=== PATIENT | female | born 1995 | race Two or more races ===

== ENCOUNTER 2024-05-22 08:45 | Outpatient (CLI) | payer OTHER | END 2024-05-22 08:54 | disposition home or self-care (01) | LOC: PRENATAL 08:45 | PROVIDERS: ATTEND Obstetrics & Gynecology Maternal & Fetal Medicine | DX: Z76.1 Encounter for health supervision and care of foundling (principal) ==

== ENCOUNTER 2024-05-28 10:19 | Outpatient (CLI) | payer OTHER | END 2024-05-28 10:20 | disposition home or self-care (01) | LOC: PRENATAL 10:19 | PROVIDERS: ATTEND Obstetrics & Gynecology Maternal & Fetal Medicine | DX: O36.80X0 Pregnancy with inconclusive fetal viability, not applicable or unspecified (principal); Z36.82 Encounter for antenatal screening for nuchal translucency; Z36.9 Encounter for antenatal screening, unspecified; Z3A.13 13 weeks gestation of pregnancy ==

== ENCOUNTER 2024-07-20 08:03 | Outpatient (CLI) | payer OTHER | END 2024-07-20 08:04 | disposition home or self-care (01) | LOC: PRENATAL 08:03 | PROVIDERS: ATTEND Obstetrics & Gynecology Maternal & Fetal Medicine | DX: O44.00 Complete placenta previa NOS or without hemorrhage, unspecified trimester (principal); O99.280 Endocrine, nutritional and metabolic diseases complicating pregnancy, unspecified trimester; O34.10 Maternal care for benign tumor of corpus uteri, unspecified trimester; Z3A.21 21 weeks gestation of pregnancy ==

== ENCOUNTER → 2024-10-15 | Outpatient (CLI) | payer OTHER | END | disposition home or self-care (01) | LOC: PRENATAL 09:34 | PROVIDERS: ATTEND Obstetrics & Gynecology Maternal & Fetal Medicine | DX: O26.849 Uterine size-date discrepancy, unspecified trimester (principal); O36.8199 Decreased fetal movements, unspecified trimester, other fetus; O99.280 Endocrine, nutritional and metabolic diseases complicating pregnancy, unspecified trimester; O34.10 Maternal care for benign tumor of corpus uteri, unspecified trimester; Z3A.33 33 weeks gestation of pregnancy ==

== ENCOUNTER 2024-11-11 10:31 | Outpatient (CLI) | payer OTHER | END 2024-11-11 11:27 | disposition home or self-care (01) | LOC: NST 10:31 | PROVIDERS: ATTEND General Practice | DX: Z3A.37 37 weeks gestation of pregnancy (principal) ==

== ENCOUNTER 2024-11-17 11:11 | Inpatient (IN) | payer OTHER ==
[~2024-11-17] VITALS: Ht 149.9 cm; Wt 86.2 kg
[2024-11-17 12:19] LABS: HEMATOCRIT 38.5 % (36.0-45.00); HEMOGLOBIN 12.7 g/dL (12.0-15.00); MEAN CELL VOLUME 88.7 fL (80.00-100.00); MEAN CORPUSCULAR HEMOGLOBIN 29.2 pg (27.00-32.0); MEAN CORPUSCULAR HGB CONC 32.9 g/dl (32.0-36.0); PLATELET COUNT 200 K/uL (150-450); RED BLOOD COUNT 4.34 M/uL (4.00-6.00)
[2024-11-17 12:43] LABS: INR 0.96; PROTHROMBIN TIME 10.5 SECONDS (9.0-11.5)
[2024-11-17 13:13] LABS: ALBUMIN 2.7 gm/dL (3.4-5.0); BILIRUBIN TOTAL 0.26 mg/dL (0.3-1.2); CALCIUM 9.6 mg/dL (8.5-10.1); CREATININE SERUM 0.45 mg/dL (0.55-1.02); GFR 164.73; GLOBULINA 4.6 G/DL (2.4-3.5); POTASSIUM 4.34 mEq/L (3.5-5.1); TOTAL PROTEIN 7.3 gm/dL (6.4-8.2)
[2024-11-24 10:58] VITALS: BP 110/74
[2024-11-24] MEDS ORDERED: SYNTHROID112 MCG PO (11:27)
[2024-11-24] MEDS ORDERED: PRENATAL TABLE1 EAC1 PO (11:28)
[2024-11-24] MEDS ORDERED: MISOPROSTOL 50 MCG TABLET ONE (12:42)
[2024-11-24] MEDS ORDERED: MISOPROSTOL 50 MCG TABLET VAG NR (12:45)
[2024-11-24 15:11] VITALS: BP 102/63
[2024-11-24 19:23] VITALS: BP 102/68
[2024-11-24 23:09] VITALS: BP 96/64
[2024-11-25] VITALS (8 sets, daily range): BP systolic 87–132; BP diastolic 47–69
[2024-11-25] MEDS ORDERED: OXYTOCIN 20 UNITS/500ML RL PIGGYBAG IV ONE (06:56)
[2024-11-25] MEDS ORDERED: OXYTOCIN 500 ML IV SCH (07:00)
[2024-11-25] MEDS ORDERED: FAMOTIDINE/PF 20 MG/2 ML VIAL IV SCH (11:13)
[2024-11-25] MEDS ORDERED: ONDANSETRON HCL 2 MG/ML VIAL IV PRN (12:45)
[2024-11-25] MEDS ORDERED: MORPHINE SULFATE 4 MG/ML VIAL IV ONE (15:30)
[2024-11-25] MEDS ORDERED: CEFAZOLIN SODIUM 1,000 MG VIAL IV ONE (18:00)
[2024-11-25] MEDS ORDERED: OXYTOCIN 20 UNITS/1000ML RL PIGGYBAG IV ONE (21:39)
[2024-11-25] MEDS ORDERED: CHLORHEXIDINE GLUCONATE 120 ML BOTTLE TOP ONE (21:40)
[2024-11-25] MEDS ORDERED: CHLORHEXIDINE GLUCONATE 120 ML BOTTLE TOP SCH (22:45)
[2024-11-25] MEDS ORDERED: ACETAMINOPHEN 500 MG GEL..CAP PO PRN (22:45)
[2024-11-25] MEDS ORDERED: IBUprofen 400 MG TABLET PO PRN (22:45)
[2024-11-25] MEDS ORDERED: OXYTOCIN 1,000 ML IV SCH (22:45)
[2024-11-25] MEDS ORDERED: ERYTHROMYCIN BASE OPHT 1GM EACH TUBE OP ONE (23:00)
[2024-11-25] MEDS ORDERED: LIDOCAINE HCL 1% 10ML VIAL IJ ONE (23:00)
[2024-11-26 02:32] VITALS: BP 108/70
[2024-11-26 06:31] LABS: HEMATOCRIT 32.7 % (36.0-45.00); MEAN CELL VOLUME 87.1 fL (80.00-100.00); MEAN CORPUSCULAR HEMOGLOBIN 29.4 pg (27.00-32.0); MEAN CORPUSCULAR HGB CONC 33.8 g/dl (32.0-36.0); PLATELET COUNT 181 K/uL (150-450); RED BLOOD COUNT 3.75 M/uL (4.00-6.00); RED CELL DISTRIBUTION WIDTH 14.2 % (11.5-14.5)
[2024-11-26 08:11] VITALS: BP 97/66
[2024-11-26] MEDS ORDERED: PNV,CALCIUM 72/IRON/FOLIC ACID 1 TAB TABLET PO SCH (09:00)
[2024-11-26] MEDS ORDERED: MEASLES,MUMPS,RUBELLA VACC/PF 1 VIAL VIAL SUBCUTANEO ONE (09:00)
[2024-11-26 16:00] VITALS: BP 103/70
[2024-11-27] VITALS: BP 116/81
[2024-11-27 08:00] VITALS: BP 95/61
== END 2024-11-27 14:58 | disposition home or self-care (01) | DRG 807 ==
LOC: LDR 11-24 10:25 → OB/GYN 11-25 22:46 → LDR 11-30 14:15
PROVIDERS: ADMIT General Practice; ATTEND General Practice
PROC: 3E0P7VZ Introduction of Hormone into Female Reproductive, Via Natural or Artificial Opening (ICD-10-PCS; 2024-11-24)
PROC: 4A1HXCZ Monitoring of Products of Conception, Cardiac Rate, External Approach (ICD-10-PCS; 2024-11-24)
PROC: 10D07Z6 Extraction of Products of Conception, Vacuum, Via Natural or Artificial Opening (ICD-10-PCS; principal; 2024-11-25)
PROC: 0UQG7ZZ Repair Vagina, Via Natural or Artificial Opening (ICD-10-PCS; 2024-11-25)
PROC: 3E033VJ Introduction of Other Hormone into Peripheral Vein, Percutaneous Approach (ICD-10-PCS; 2024-11-25)
DX: O71.4 Obstetric high vaginal laceration alone (principal); O66.5 Attempted application of vacuum extractor and forceps; O99.284 Endocrine, nutritional and metabolic diseases complicating childbirth; E03.9 Hypothyroidism, unspecified; O99.214 Obesity complicating childbirth; E66.811 Obesity, class 1; Z37.0 Single live birth; Z3A.39 39 weeks gestation of pregnancy